=== PATIENT | female | born 1975 | race Hispanic/Latino ===

== ENCOUNTER 2018-06-24 12:43 | Emergency (ER) | payer OTHER ==
[2018-06-24 13:10] LABS: BASOPHILS % (AUTO) 1.2 % (0.0-5.0); EOSINOPHILS % (AUTO) 2.4 % (0.0-8.0); HEMATOCRIT 23.9 % (36-48); LYMPHOCYTES % (AUTO) 23.9 % (21.0-51.0); MEAN CORPUSCULAR HEMOGLOBIN 18.6 pg (27.0-33.0); MEAN CORPUSCULAR VOLUME 61.8 fL (79-99); MONOCYTES % (AUTO) 7.8 % (3.0-13.0); NEUTROPHILS % (AUTO) 64.7 % (40.0-77.0); NUCLEATED RED BLOOD CELLS 0.1 % (0.0-0.19); PLATELET COUNT (AUTO) 269 K/uL (130-400); RED BLOOD CELL COUNT(AUTO) 3.87 MIL/uL (4.00-5.50); WHITE BLOOD COUNT (AUTO) 4.1 K/uL (4.8-10.8)
[2018-06-24 13:26] LABS: CREATININE 0.5 mg/dL (0.5-1.5)
[2018-06-24 13:31] LABS: ALBUMIN 3.7 g/dL (3.5-5.0); BILIRUBIN,TOTAL 0.9 mg/dL (0.2-1.0)
[2018-06-24] MEDS ORDERED: POTASSIUM CHLORIDE 20 MEQ ERTAB PO ONE (14:55)
== END 2018-06-24 15:37 | disposition home or self-care (01) ==
LOC: EDH 12:43
DX: D64.9 Anemia, unspecified (principal); E87.6 Hypokalemia; R00.2 Palpitations; Z90.49 Acquired absence of other specified parts of digestive tract; Z98.51 Tubal ligation status
CPT/HCPCS: 36415; 71046; 80053; 81025; 84484; 85025; 86850; 86900; 86901; 93005

== ENCOUNTER 2019-02-18 23:09 | Observation (INO) | payer OTHER ==
[2019-02-18 23:46] LABS: BASOPHILS % (AUTO) 0.9 % (0.0-5.0); EOSINOPHILS % (AUTO) 1.1 % (0.0-8.0); HEMATOCRIT 22.1 % (36-48); LYMPHOCYTES % (AUTO) 22.9 % (21.0-51.0); MEAN CORPUSCULAR HEMOGLOBIN 17.7 pg (27.0-33.0); MEAN CORPUSCULAR HGB CONC 29.8 g/dL (32.0-36.0); MEAN CORPUSCULAR VOLUME 59.2 fL (79-99); MONOCYTES % (AUTO) 7.3 % (3.0-13.0); NEUTROPHILS % (AUTO) 67.8 % (40.0-77.0); NUCLEATED RED BLOOD CELLS 0.1 % (0.0-0.19); PLATELET COUNT (AUTO) 229 K/uL (130-400); RED BLOOD CELL COUNT(AUTO) 3.73 MIL/uL (4.00-5.50); RED CELL DISTRIBUTION WIDTH 19.4 % (11.0-15.5); WHITE BLOOD COUNT (AUTO) 6.3 K/uL (4.8-10.8)
[2019-02-18 23:56] LABS: CREATININE 0.6 mg/dL (0.5-1.5)
[2019-02-19] MEDS ORDERED: MORPHINE SULFATE 4 MG/1ML SYG ONE
[2019-02-19] MEDS ORDERED: SODIUM CHLORIDE 0.9% 500ML 500 ML IV ONE (00:01)
[2019-02-19] MEDS ORDERED: MAGNESIUM OXIDE 400 MG TABLET PO ONE (00:16)
[2019-02-19] MEDS ORDERED: IOHEXOL-350 50ML VIAL IV ONE (00:16)
[2019-02-19] MEDS ORDERED: POTASSIUM CHLORIDE 20 MEQ ERTAB PO ONE (00:16)
[2019-02-19 01:47] LABS: % IRON SATURATION 2.9 % (22-44)
[2019-02-19] MEDS ORDERED: ONDANSETRON HCL 4 MG/2 ML VIAL IV PRN (04:15)
[2019-02-19] MEDS ORDERED: POTASSIUM CHLORIDE 20MEQ/100ML 100 ML IV PRN (04:15)
[2019-02-19] MEDS ORDERED: ONDANSETRON HCL 4 MG/2 ML VIAL ONE ×3 (04:15→09:22)
[2019-02-19] MEDS ORDERED: LIDOCAINE HCL-MPF 1% 2ML VIAL IV PRN (04:15)
[2019-02-19] MEDS ORDERED: MAGNESIUM 2GM PREMIX 50ML 50 ML IV PRN (04:15)
[2019-02-19] MEDS ORDERED: EPOETIN ALFA 10,000 UNIT/ML VIAL SQ SCH (08:15)
[2019-02-19] MEDS ORDERED: COMPOUND IV MISC 1 EACH IVSOLN MISC PRN (08:45)
[2019-02-19] MEDS ORDERED: FAMOTIDINE/PF 20 MG/2 ML VIAL IV SCH (09:00)
[2019-02-19] MEDS ORDERED: IRON SUCROSE COMPLEX 100 MG in SODIUM CHLORIDE 0.9% 50 ML IV SCH (09:00)
[2019-02-19 09:24] LABS: EOSINOPHILS % (AUTO) 1.8 % (0.0-8.0); HEMATOCRIT 23.4 % (36-48); MEAN CORPUSCULAR HEMOGLOBIN 19.6 pg (27.0-33.0); MEAN CORPUSCULAR HGB CONC 30.7 g/dL (32.0-36.0); MEAN CORPUSCULAR VOLUME 63.8 fL (79-99); MONOCYTES % (AUTO) 7.3 % (3.0-13.0); NEUTROPHILS % (AUTO) 63.9 % (40.0-77.0); PLATELET COUNT (AUTO) 194 K/uL (130-400); RED BLOOD CELL COUNT(AUTO) 3.67 MIL/uL (4.00-5.50); WHITE BLOOD COUNT (AUTO) 4.6 K/uL (4.8-10.8)
[2019-02-19 09:50] LABS: CREATININE 0.6 mg/dL (0.5-1.5); MAGNESIUM 1.9 mg/dL (1.80-2.40); POTASSIUM 3.7 mmol/L (3.5-5.1)
--- NOTE | 2019-02-19 10:07 | NUR ---
Discharge instructions completed in the room with pt. Emphasis on dx (symptomatic anemia, dental pain), s/s to monitor for, when to seek emergency care vs dial 911. Pt is to keep follow up appt with dentist for removal of sutures. Attempted to make follow up appointment with pt's PCP, Dr. Patel, but no answer despite several calls. Instructed pt to contact office and schedule appointment to be seen within 3-5 days for transition of care, as well as coordination of follow up with her [employer], Dr. Curtis, due to menorrhagia. Pt is to continue with her previously prescribed course of abx, steroids, and toradol. Written rx for Tylenol #3, ferrous sulfate, and ascorbic acid given to pt. Discussed purpose, route, frequency, and duration of treatment, as well as side effects and adverse effects. All questions addressed. Endorsed to primary nurse for removal of PIV and transport to private vehicle for discharge home.
== END 2019-02-19 10:12 | disposition home or self-care (01) ==
LOC: EDH 23:09 → EDHIP 02-19 04:06
PROVIDERS: ADMIT Internal Medicine; ATTEND Internal Medicine
DX: D50.9 Iron deficiency anemia, unspecified (principal); K08.89 Other specified disorders of teeth and supporting structures; E87.6 Hypokalemia; Z90.49 Acquired absence of other specified parts of digestive tract; Z98.51 Tubal ligation status
CPT/HCPCS: 36415; 36430; 70487; 80048 ×2; 83540; 83550; 83735; 85025 ×2; 86850; 86900; 86901; 86922; 99284; G0378 ×2; J0885; J1756; J2270; J2405 ×3; J7040; P9016; Q9967